=== PATIENT | male | born 1955 | race Caucasian/White ===

== ENCOUNTER → 2016-09-30 | Outpatient (CLI) | payer OTHER ==
[~2016-09-30] MED LIST: AMOXICILLIN 8751 TAB PO; CIPRO 500MG TA500 MG PO; COLACE 100100 MG/CAP PO; NO HOME MEDICATIONS; PERI-COLACE 501 TAB PO
== END ==
LOC: COL.LAB 15:53
DX: B18.2 Chronic viral hepatitis C (principal); K74.60 Unspecified cirrhosis of liver
CPT/HCPCS: 87522

== ENCOUNTER → 2016-12-28 | Outpatient (CLI) | payer OTHER | LOC: COL.LAB 09:25 | DX: B18.2 Chronic viral hepatitis C (principal); R74.8 Abnormal levels of other serum enzymes ==

== ENCOUNTER → 2017-06-30 | Outpatient (CLI) | payer SELFPAY ==
[2017-06-30 08:14] LABS: BASO % 0.7 % (0.0-2.0); EOS # 0.1 (0.0-0.7); EOS % 2.4 % (0-4.0); GRAN # 2.7 (1.4-6.5); GRAN % 49.6 % (42.2-75.2); HEMOGLOBIN 13.7 g/dl (13.5-18.0); LYMPH % 36.9 % (20.0-51.0); MEAN CELL VOLUME 84 fl (80.0-100.0); MEAN CORPUSCULAR HEMOGLOBIN 27 pg (27.0-31.0); MEAN CORPUSCULAR HGB CONC 33 g/dl (33.0-37.0); MEAN PLATELET VOLUME 10.7 fl (7.4-10.4); MONO # 0.5 (0.1-0.6); PLATELET COUNT 106 K/mm3 (130-400); RED BLOOD COUNT 5.01 M/mm3 (4.20-5.60); REDCELL DISTRIBUTION WIDTH-CV 14.3 % (11.5-14.5)
[2017-06-30 08:18] LABS: INR 1.3 (0.8-3.0); PROTHROMBIN TIME 14.6 SECONDS (9.7-12.8)
[2017-06-30 08:24] LABS: ALBUMIN 4.3 gm/dL (3.5-5.0); BILIRUBIN,TOTAL 0.9 mg/dL (0.0-1.0); CALCIUM 9.4 mg/dL (8.4-10.2); CREATININE, serum 0.77 mg/dL (0.66-1.25); POTASSIUM 4.7 mmol/L (3.4-5.0); TOTAL PROTEIN 8.4 gm/dL (6.4-8.2)
== END ==
LOC: COL.RAD 07:30 → COL.LAB 07:42
PROVIDERS: Physician Assistant
DX: K74.60 Unspecified cirrhosis of liver (principal); R74.8 Abnormal levels of other serum enzymes

== ENCOUNTER → 2017-12-28 | Outpatient (CLI) | payer SELFPAY ==
[2017-12-28 11:21] LABS: BASO # 0.1 (0.0-0.2); BASO % 0.8 % (0.0-2.0); EOS # 0.1 (0.0-0.7); EOS % 1.9 % (0-4.0); GRAN # 3.4 (1.4-6.5); GRAN % 55.2 % (42.2-75.2); HEMATOCRIT 41.5 % (42.0-52.0); HEMOGLOBIN 13.9 g/dl (13.5-18.0); LYMPH # 1.9 (1.2-3.4); MEAN CELL VOLUME 82 fl (80.0-100.0); MEAN CORPUSCULAR HEMOGLOBIN 27 pg (27.0-31.0); MEAN CORPUSCULAR HGB CONC 34 g/dl (33.0-37.0); MEAN PLATELET VOLUME 11.3 fl (7.4-10.4); MONO # 0.7 (0.1-0.6); MONO % 10.8 % (1.7-9.3); PLATELET COUNT 114 K/mm3 (130-400); RED BLOOD COUNT 5.09 M/mm3 (4.20-5.60); REDCELL DISTRIBUTION WIDTH-CV 14.1 % (11.5-14.5)
[2017-12-28 11:30] LABS: ALBUMIN 4.4 gm/dL (3.5-5.0); CALCIUM 9.3 mg/dL (8.4-10.2); CREATININE, serum 0.64 mg/dL (0.66-1.25); POTASSIUM 4.2 mmol/L (3.4-5.0); TOTAL PROTEIN 8.6 gm/dL (6.4-8.2)
[2017-12-28 13:25] LABS: INR 1.2 (0.8-3.0); PROTHROMBIN TIME 13.3 SECONDS (9.7-12.8)
== END ==
LOC: COL.LAB 10:42
PROVIDERS: Physician Assistant
DX: K74.60 Unspecified cirrhosis of liver (principal); B18.2 Chronic viral hepatitis C; R74.8 Abnormal levels of other serum enzymes

== ENCOUNTER → 2018-01-05 | Outpatient (CLI) | payer SELFPAY | LOC: COL.RAD 07:28 | DX: K74.60 Unspecified cirrhosis of liver (principal); R74.8 Abnormal levels of other serum enzymes; B18.2 Chronic viral hepatitis C ==

== ENCOUNTER → 2018-06-27 | Outpatient (CLI) | payer OTHER ==
[2018-06-27 11:24] LABS: INR 1.2 (0.8-3.0)
[2018-06-27 11:27] LABS: BASO % 0.6 % (0.0-2.0); EOS # 0.1 (0.0-0.7); EOS % 1.9 % (0-4.0); GRAN % 57.1 % (42.2-75.2); HEMATOCRIT 43.5 % (42.0-52.0); HEMOGLOBIN 14.3 g/dl (13.5-18.0); LYMPH # 1.6 (1.2-3.4); LYMPH % 30.1 % (20.0-51.0); MEAN CELL VOLUME 83 fl (80.0-100.0); MEAN CORPUSCULAR HEMOGLOBIN 27 pg (27.0-31.0); MEAN CORPUSCULAR HGB CONC 33 g/dl (33.0-37.0); MEAN PLATELET VOLUME 10.9 fl (7.4-10.4); MONO # 0.5 (0.1-0.6); MONO % 10.1 % (1.7-9.3); PLATELET COUNT 105 K/mm3 (130-400); RED BLOOD COUNT 5.23 M/mm3 (4.20-5.60); REDCELL DISTRIBUTION WIDTH-CV 14.2 % (11.5-14.5)
[2018-06-27 11:29] LABS: ALBUMIN 4.5 gm/dL (3.5-5.0); BILIRUBIN,TOTAL 1.4 mg/dL (0.0-1.0); CREATININE, serum 0.71 mg/dL (0.66-1.25); POTASSIUM 4.3 mmol/L (3.4-5.0); TOTAL PROTEIN 8.8 gm/dL (6.4-8.2)
== END ==
LOC: COL.LAB 10:47 → EDSTATUS 10:51
PROVIDERS: Physician Assistant
DX: K74.60 Unspecified cirrhosis of liver (principal)

== ENCOUNTER → 2018-07-03 | Outpatient (CLI) | payer OTHER | LOC: COL.RAD 10:24 | DX: K74.60 Unspecified cirrhosis of liver (principal) ==

== ENCOUNTER 2018-11-21 19:11 | Inpatient (IN) | payer SELFPAY ==
[~2018-11-21] VITALS: Ht 172.7 cm; Wt 88.2 kg
[2018-11-21 19:33] LABS: COLLECTION METHOD CLEAN CATCH
[2018-11-21 19:46] LABS: MUCOUS Present /lpf; PH 5 (5-8); SQUAMOUS EPITHELIAL 0-2 /hpf; URINE APPEARANCE Cloudy; URINE BACTERIA Rare /hpf; URINE BILIRUBIN Negative (NEGATIVE); URINE BLOOD Negative (NEGATIVE); URINE COLOR Amber; URINE GLUCOSE Negative (NEGATIVE); URINE KETONE Trace (NEGATIVE); URINE LEUKOCYTE ESTERASE 1+ (NEGATIVE); URINE NITRATE Positive (NEGATIVE); URINE PROTEIN(semi-quant) 1+ (NEGATIVE); URINE RBC 0-2 /hpf; URINE UROBILINOGEN Negative (NEGATIVE)
[2018-11-21 19:56] LABS: HEMATOCRIT 41.7 % (42.0-52.0); MEAN CELL VOLUME 83 fl (80.0-100.0); MEAN CORPUSCULAR HEMOGLOBIN 28 pg (27.0-31.0); MEAN CORPUSCULAR HGB CONC 34 g/dl (33.0-37.0); MEAN PLATELET VOLUME 10.8 fl (7.4-10.4); PLATELET COUNT 141 K/mm3 (130-400); RED BLOOD COUNT 5.04 M/mm3 (4.20-5.60); REDCELL DISTRIBUTION WIDTH-CV 14.6 % (11.5-14.5)
[2018-11-21 20:04] LABS: ALANINE AMINOTRANSFERASE 38 U/L (21-72); ALBUMIN 4.3 gm/dL (3.5-5.0); ALCOHOL(ethanol),MEDICAL < 10 mg/dL; ALKALINE PHOSPHATASE 117 U/L (50-136); ANION GAP 13 mmol/L (7-16); AST,SGOT 40 U/L (15-37); BILIRUBIN,TOTAL 0.9 mg/dL (0.0-1.0); BLOOD UREA NITROGEN 21 mg/dL (9-20); C-REACTIVE PROTEIN 1.3 mg/dL (0.0-0.9); CALCIUM 9.5 mg/dL (8.4-10.2); CARBON DIOXIDE 23 mmol/L (22-30); CHLORIDE 102 mmol/L (98-107); CREATININE, serum 0.84 (0.66-1.25); GLUCOSE 142 mg/dL (74-106); LIPASE 213 U/L (23-300); POTASSIUM 4.3 mmol/L (3.4-5.0); SODIUM 139 mmol/L (137-145); TOTAL PROTEIN 8.8 gm/dL (6.4-8.2)
[2018-11-21 20:48] LABS: BAND 4 % (0-10); LYMPHOCYTE 4 % (20.0-51.0); NEUTROPHILS 84 % (42.0-75.2)
[2018-11-21 20:49] LABS: PLATELET ESTIMATE NORMAL (NORMAL)
--- NOTE | 2018-11-21 22:55 | NUR ---
Arrived to medical floor
[2018-11-21 22:58] VITALS: BP 119/68; PULSE 61; TEMP 98
[2018-11-21 23:02] VITALS: BP 1119/68; BP 119/68; PULSE 58; TEMP 98
[2018-11-21] MEDS ORDERED: PROSVENT PO (23:14)
--- NOTE | 2018-11-21 23:44 | NUR ---
Assessment complete. Lungs clear. Heart sounds normal. Bowels active x4. Pulse strong throughout. No edema noted. Scrotum enlarged with erythema. Painful for patient. Reports pain is manageable at this time. All questions answered. Denies other needs. Spoke with Dr. Briseno. Verbal order for tylenol given. Will see patient in AM.
--- NOTE | 2018-11-22 00:35 | NUR ---
Resting in bed. Call light in reach.
[2018-11-22 01:12] VITALS: BP 119/68; PULSE 58; TEMP 98
[2018-11-22 05:23] VITALS: BP 126/71; PULSE 65; TEMP 97.8
--- NOTE | 2018-11-22 05:55 | NUR ---
Patient had uneventful night. Required x1 dose of tylenol for pain in lower ABD. Resting in bed this AM. Call light in reach.
--- NOTE | 2018-11-22 07:33 | NUR ---
Report given to CASEY Valles
[2018-11-22 07:39] VITALS: BP 125/76; PULSE 58; TEMP 97.7
--- NOTE | 2018-11-22 09:27 | NUR ---
Pt alert and oriented. Pt states pain 4/10 in left groin which is swollen. Pt IV patent no redness or infiltration. Pt am assessment completed. Pt given PRN Tylenol for pain management and Dr. Briseno will see pt today. Pt has call light in reach and denies needs at this time.
[2018-11-22 11:37] VITALS: BP 129/78; PULSE 62; TEMP 98.3
--- NOTE | 2018-11-22 15:19 | NUR ---
SW met with the patient and patient's [id number], Saray, to discuss discharge plan. The patient was able to understand and answer some questions and the [id number] helped translate. The patient lives in [place] with his , Viridiana Mejia, and their son. He works at [employer]. He reports independence with ADLs and does not have any DME. The patient's PCP is Jamir Douglas PA-C and he receives his medications at the [facility]. He reports no difficulties obtaining his meds. The patient is self pay. Financial Counselor, Kaveh, was consulted and provided a financial assistance application to the patient. The patient does not have advanced directives and he was not interested in completing them at this time. He states his next of kin is his , Viridiana (ph#[phone]). The patient plans to return home with family upon discharge. No additional needs at this time.
--- NOTE | 2018-11-22 16:52 | NUR ---
Discharge paperwork reviewed with patient and family. Patient verbalized an understanding of following doctors orders. IV removed, tip intact, patient tolerated well. Bandaid and gauze applied. Patient ambulated independently with nursing staff with personal belongings
== END 2018-11-22 17:00 | disposition home or self-care (01) | DRG 728 ==
LOC: COL.ER 19:11 → MEDICAL 21:43
PROVIDERS: Emergency Medicine; ADMIT Urology
DX: N45.3 Epididymo-orchitis (principal); K74.60 Unspecified cirrhosis of liver; F17.210 Nicotine dependence, cigarettes, uncomplicated
CPT/HCPCS: J0696

== ENCOUNTER → 2019-01-02 | Outpatient (CLI) | payer OTHER ==
[~2019-01-02] MED LIST changes: +PROSVENT PO
[2019-01-02 10:12] LABS: INR 1.1 (0.8-3.0); PROTHROMBIN TIME 13.4 SECONDS (9.7-12.8)
== END ==
LOC: COL.RAD 08:03
PROVIDERS: Physician Assistant
DX: K74.60 Unspecified cirrhosis of liver (principal)

== ENCOUNTER → 2019-07-27 | Outpatient (CLI) | payer SELFPAY ==
[2019-07-27 09:43] LABS: BASO # 0.1 (0.0-0.2); BASO % 0.8 % (0.0-2.0); EOS # 0.1 (0.0-0.7); EOS % 1.7 % (0-4.0); GRAN # 3.7 (1.4-6.5); GRAN % 61.6 % (42.2-75.2); HEMOGLOBIN 15.4 g/dl (13.5-18.0); LYMPH # 1.6 (1.2-3.4); MEAN CELL VOLUME 84 fl (80.0-100.0); MEAN CORPUSCULAR HEMOGLOBIN 28 pg (27.0-31.0); MEAN CORPUSCULAR HGB CONC 34 g/dl (33.0-37.0); MEAN PLATELET VOLUME 10.7 fl (7.4-10.4); MONO # 0.6 (0.1-0.6); MONO % 9.6 % (1.7-9.3); PLATELET COUNT 113 K/mm3 (130-400); RED BLOOD COUNT 5.47 M/mm3 (4.20-5.60); REDCELL DISTRIBUTION WIDTH-CV 13.8 % (11.5-14.5)
[2019-07-27 09:47] LABS: INR 1.2 (0.8-3.0); PROTHROMBIN TIME 14.2 SECONDS (9.7-12.8)
[2019-07-27 09:50] LABS: ALBUMIN 4.9 gm/dL (3.5-5.0); BILIRUBIN,TOTAL 1.6 mg/dL (0.0-1.0); CALCIUM 9.9 mg/dL (8.4-10.2); CREATININE, serum 0.75 (0.66-1.25); POTASSIUM 4.8 mmol/L (3.4-5.0); TOTAL PROTEIN 9.4 gm/dL (6.4-8.2)
== END ==
LOC: COL.RAD 07:49 → COL.LAB 07:49 → COL.RAD 08:15
PROVIDERS: Physician Assistant
DX: K74.60 Unspecified cirrhosis of liver (principal)

== ENCOUNTER → 2020-02-07 | Outpatient (CLI) | payer SELFPAY ==
[2020-02-07 09:31] LABS: BASO % 0.6 % (0.0-2.0); EOS # 0.1 (0.0-0.7); EOS % 2.4 % (0-4.0); GRAN # 2.9 (1.4-6.5); GRAN % 58.7 % (42.2-75.2); HEMATOCRIT 43.6 % (42.0-52.0); HEMOGLOBIN 14.8 g/dl (13.5-18.0); LYMPH # 1.4 (1.2-3.4); LYMPH % 27.5 % (20.0-51.0); MEAN CELL VOLUME 86 fl (80.0-100.0); MEAN CORPUSCULAR HEMOGLOBIN 29 pg (27.0-31.0); MEAN CORPUSCULAR HGB CONC 34 g/dl (33.0-37.0); MEAN PLATELET VOLUME 11.3 fl (7.4-10.4); MONO # 0.5 (0.1-0.6); MONO % 10.4 % (1.7-9.3); PLATELET COUNT 110 K/mm3 (130-400); REDCELL DISTRIBUTION WIDTH-CV 13.7 % (11.5-14.5)
[2020-02-07 09:36] LABS: INR 1.3 (0.8-3.0)
[2020-02-07 09:41] LABS: ALBUMIN 4.5 gm/dL (3.5-5.0); BILIRUBIN,TOTAL 1.2 mg/dL (0.0-1.0); CALCIUM 9.4 mg/dL (8.4-10.2); CREATININE, serum 0.74 (0.66-1.25); POTASSIUM 4.6 mmol/L (3.4-5.0); TOTAL PROTEIN 8.4 gm/dL (6.4-8.2)
== END ==
LOC: COL.RAD 08:13 → COL.LAB 08:14 → COL.RAD 08:14
PROVIDERS: Physician Assistant
DX: K74.60 Unspecified cirrhosis of liver (principal); I87.8 Other specified disorders of veins; K80.20 Calculus of gallbladder without cholecystitis without obstruction

== ENCOUNTER 2020-08-08 07:46 | Day surgery (SDC) | payer OTHER ==
[~2020-08-08] VITALS: Ht 172.7 cm; Wt 90.6 kg
[2020-08-08 08:05] VITALS: BP 132/8; PULSE 65; TEMP 98.1
[2020-08-08 08:55] VITALS: BP 120/85; PULSE 77; TEMP 97.8
--- NOTE | 2020-08-08 08:55 | NUR ---
TO BAY 4 PER CART FROM ENDOSCOPY. ALERT ORIENTED X3, TALKING TO AND STAFF. AMBULATED TO RECLINER WITH ASSIST AND TOLERATED WELL. RECEIVED OJ.
[2020-08-08 09:10] VITALS: BP 126/85; PULSE 65
--- NOTE | 2020-08-08 09:10 | NUR ---
DRANK 100% AND DENIES WANTING ANYTHING TO EAT.
--- NOTE | 2020-08-08 09:15 | NUR ---
DISCONTINUED IV AND INT- CATHETER INTACT PATIENT GETTING DRESSED.
--- NOTE | 2020-08-08 09:20 | NUR ---
DR HUDSON INTO TALK TO PATIENT AND HIS .
--- NOTE | 2020-08-08 09:25 | NUR ---
RECEIVED DISCHARGE INSTRUCTIONS AND VERBALIZED UNDERSTANDING.
--- NOTE | 2020-08-08 09:37 | NUR ---
DISCHARGED PER WC BY NURSING STAFF TO PRIVATE CAR IN CARE OF DENNIS.
== END 2020-08-08 09:44 | disposition home or self-care (01) ==
LOC: SDCO 07:46
DX: I85.00 Esophageal varices without bleeding (principal); K29.30 Chronic superficial gastritis without bleeding; K74.60 Unspecified cirrhosis of liver; B19.20 Unspecified viral hepatitis C without hepatic coma; Z20.822 Contact with and (suspected) exposure to COVID-19
CPT/HCPCS: J2704; J7030

== ENCOUNTER → 2020-08-11 | Outpatient (CLI) | payer SELFPAY ==
[2020-08-11 09:17] LABS: BASO # 0.1 (0.0-0.2); BASO % 0.9 % (0.0-2.0); EOS # 0.1 (0.0-0.7); GRAN # 3.5 (1.4-6.5); GRAN % 63.9 % (42.2-75.2); HEMATOCRIT 43.9 % (42.0-52.0); HEMOGLOBIN 14.7 g/dl (13.5-18.0); LYMPH # 1.3 (1.2-3.4); LYMPH % 23.6 % (20.0-51.0); MEAN CELL VOLUME 86 fl (80.0-100.0); MEAN CORPUSCULAR HEMOGLOBIN 29 pg (27.0-31.0); MEAN CORPUSCULAR HGB CONC 34 g/dl (33.0-37.0); MEAN PLATELET VOLUME 11.6 fl (7.4-10.4); MONO # 0.5 (0.1-0.6); MONO % 9.1 % (1.7-9.3); PLATELET COUNT 110 K/mm3 (130-400); RED BLOOD COUNT 5.08 M/mm3 (4.20-5.60); REDCELL DISTRIBUTION WIDTH-CV 13.4 % (11.5-14.5)
[2020-08-11 09:27] LABS: INR 1.3 (0.8-3.0); PROTHROMBIN TIME 14.7 SECONDS (9.7-12.8)
[2020-08-11 09:32] LABS: ALBUMIN 4.4 gm/dL (3.5-5.0); CALCIUM 9.6 mg/dL (8.4-10.2); CREATININE, serum 0.69 (0.66-1.25); POTASSIUM 4.3 mmol/L (3.4-5.0); TOTAL PROTEIN 8.6 gm/dL (6.4-8.2)
== END ==
LOC: COL.RAD 08:06
PROVIDERS: Physician Assistant
DX: K74.60 Unspecified cirrhosis of liver (principal); R74.8 Abnormal levels of other serum enzymes; Z86.19 Personal history of other infectious and parasitic diseases

== ENCOUNTER → 2021-02-03 | Outpatient (CLI) | payer SELFPAY ==
[2021-02-03 11:10] LABS: BASO % 0.6 % (0.0-2.0); EOS # 0.2 K/mm3 (0.0-0.7); EOS % 2.6 % (0-4.0); GRAN # 3.9 K/mm3 (1.4-6.5); HEMATOCRIT 44.2 % (42.0-52.0); HEMOGLOBIN 15.1 g/dl (13.5-18.0); LYMPH # 1.6 K/mm3 (1.2-3.4); LYMPH % 24.5 % (20.0-51.0); MEAN CELL VOLUME 84 fl (80.0-100.0); MEAN CORPUSCULAR HEMOGLOBIN 29 pg (27.0-31.0); MEAN CORPUSCULAR HGB CONC 34 g/dl (33.0-37.0); MEAN PLATELET VOLUME 11.2 fl (7.4-10.4); MONO # 0.7 K/mm3 (0.1-0.6); MONO % 10.5 % (1.7-9.3); PLATELET COUNT 118 K/mm3 (130-400); RED BLOOD COUNT 5.29 M/mm3 (4.20-5.60); REDCELL DISTRIBUTION WIDTH-CV 13.5 % (11.5-14.5)
[2021-02-03 11:16] LABS: INR 1.4 (0.8-3.0); PROTHROMBIN TIME 15.1 SECONDS (9.7-12.8)
[2021-02-03 11:53] LABS: BILIRUBIN,TOTAL 1.3 mg/dL (0.2-1.2); CALCIUM 9.7 mg/dL (8.4-10.2); CREATININE, serum 0.73 mg/dL (0.72-1.25); POTASSIUM 4.6 mmol/L (3.5-4.5); TOTAL PROTEIN 8.2 gm/dL (6.2-8.1)
== END ==
LOC: COL.RAD 10:12
PROVIDERS: Physician Assistant
DX: K74.60 Unspecified cirrhosis of liver (principal); Z86.19 Personal history of other infectious and parasitic diseases

== ENCOUNTER → 2021-08-04 | Outpatient (CLI) | payer SELFPAY ==
[2021-08-04 09:49] LABS: BASO % 0.8 % (0.0-2.0); EOS # 0.1 K/mm3 (0.0-0.7); EOS % 2.2 % (0.0-4.0); GRAN % 59.9 % (42.2-75.2); HEMATOCRIT 42.3 % (42.0-52.0); HEMOGLOBIN 14.6 g/dl (13.5-18.0); LYMPH # 1.3 K/mm3 (1.2-3.4); LYMPH % 26.6 % (20.0-51.0); MEAN CELL VOLUME 84 fl (80.0-100.0); MEAN CORPUSCULAR HEMOGLOBIN 29 pg (27-31); MEAN CORPUSCULAR HGB CONC 35 g/dl (33.0-37.0); MEAN PLATELET VOLUME 11.5 fl (7.4-10.4); MONO # 0.5 K/mm3 (0.1-0.6); MONO % 10.1 % (1.7-9.3); PLATELET COUNT 106 K/mm3 (130-400); RED BLOOD COUNT 5.03 M/mm3 (4.20-5.60); REDCELL DISTRIBUTION WIDTH-CV 13.8 % (11.5-14.5)
[2021-08-04 09:54] LABS: INR 1.3 (0.8-3.0); PROTHROMBIN TIME 14.7 SECONDS (9.7-12.8)
[2021-08-04 10:02] LABS: ALBUMIN 4.2 gm/dL (3.4-4.8); BILIRUBIN,TOTAL 1.4 mg/dL (0.2-1.2); CREATININE, serum 0.72 mg/dL (0.72-1.25); POTASSIUM 4.5 mmol/L (3.5-4.5); TOTAL PROTEIN 7.5 gm/dL (6.2-8.1)
== END ==
LOC: COL.RAD 07:59
PROVIDERS: Physician Assistant
DX: K74.60 Unspecified cirrhosis of liver (principal); R74.8 Abnormal levels of other serum enzymes; K82.9 Disease of gallbladder, unspecified

== ENCOUNTER → 2022-02-02 | Outpatient (CLI) | payer SELFPAY ==
[2022-02-02 08:05] LABS: BASO % 0.7 % (0.0-2.0); EOS # 0.1 K/mm3 (0.0-0.7); EOS % 2.7 % (0.0-4.0); GRAN # 2.5 K/mm3 (1.4-6.5); GRAN % 57.3 % (42.2-75.2); HEMATOCRIT 41.5 % (42.0-52.0); HEMOGLOBIN 14.1 g/dl (13.5-18.0); LYMPH # 1.2 K/mm3 (1.2-3.4); LYMPH % 27.6 % (20.0-51.0); MEAN CELL VOLUME 85 fl (80.0-100.0); MEAN CORPUSCULAR HEMOGLOBIN 29 pg (27-31); MEAN CORPUSCULAR HGB CONC 34 g/dl (33.0-37.0); MEAN PLATELET VOLUME 11.8 fl (7.4-10.4); MONO # 0.5 K/mm3 (0.1-0.6); MONO % 11.2 % (1.7-9.3); PLATELET COUNT 108 K/mm3 (130-400); RED BLOOD COUNT 4.91 M/mm3 (4.20-5.60); REDCELL DISTRIBUTION WIDTH-CV 13.3 % (11.5-14.5)
[2022-02-02 08:15] LABS: ALBUMIN 4.1 gm/dL (3.4-4.8); CALCIUM 9.5 mg/dL (8.4-10.2); CREATININE, serum 0.76 mg/dL (0.72-1.25); POTASSIUM 4.5 mmol/L (3.5-4.5); TOTAL PROTEIN 7.8 gm/dL (6.2-8.1)
[2022-02-02 08:22] LABS: INR 1.2 (0.8-3.0); PROTHROMBIN TIME 13.8 SECONDS (9.7-12.8)
== END ==
LOC: COL.LAB 07:14 → COL.RAD 07:30
PROVIDERS: Physician Assistant
DX: K74.60 Unspecified cirrhosis of liver (principal); Z86.19 Personal history of other infectious and parasitic diseases

== ENCOUNTER → 2023-08-04 | Outpatient (CLI) | payer SELFPAY | LOC: COL.RAD 13:43 | DX: K74.60 Unspecified cirrhosis of liver (principal); R74.8 Abnormal levels of other serum enzymes; Z86.19 Personal history of other infectious and parasitic diseases ==

== ENCOUNTER → 2023-12-22 | Outpatient (CLI) | payer SELFPAY ==
[2023-12-22 08:32] LABS: BASO % 0.8 % (0.0-2.0); EOS # 0.1 K/mm3 (0.0-0.7); EOS % 2.7 % (0.0-4.0); GRAN # 3.2 K/mm3 (1.4-6.5); GRAN % 65.6 % (42.2-75.2); HEMATOCRIT 37.4 % (42.0-52.0); LYMPH % 20.6 % (20.0-51.0); MEAN CELL VOLUME 81 fl (80.0-100.0); MEAN CORPUSCULAR HEMOGLOBIN 26 pg (27-31); MEAN CORPUSCULAR HGB CONC 32 g/dl (33.0-37.0); MEAN PLATELET VOLUME 10.9 fl (7.4-10.4); MONO # 0.5 K/mm3 (0.1-0.6); MONO % 10.1 % (1.7-9.3); PLATELET COUNT 127 K/mm3 (130-400); REDCELL DISTRIBUTION WIDTH-CV 14.6 % (11.5-14.5)
[2023-12-22 08:40] LABS: INR 1.3 (0.8-3.0); PROTHROMBIN TIME 14.4 SECONDS (9.7-12.8)
[2023-12-22 09:32] LABS: ALBUMIN 3.8 g/dL (3.4-4.8); BILIRUBIN,TOTAL 1.1 mg/dL (0.2-1.2); CALCIUM 9.4 mg/dL (8.4-10.2); CREATININE, serum 0.81 mg/dL (0.72-1.25); POTASSIUM 4.5 mEq/L (3.5-4.5)
== END ==
LOC: COL.RAD 07:15
PROVIDERS: Physician Assistant
DX: K74.60 Unspecified cirrhosis of liver (principal); D50.9 Iron deficiency anemia, unspecified; I85.10 Secondary esophageal varices without bleeding; Z86.19 Personal history of other infectious and parasitic diseases